=== PATIENT | male | born 1995 | race Caucasian/White ===

== ENCOUNTER 2017-05-18 15:07 | Emergency (ER) | payer SELFPAY ==
--- NOTE | 2017-05-18 16:36 | XRay Report ---
Bilateral knees, 4 views of the chest: There is a mid patellar fracture on the left with slight angulation of the fragments but no significant separation. There is mild swelling anterior to the patella and on the medial side. The knee joint space and bony structures otherwise appear unremarkable and there is good alignment of the knee joint. Images of the right knee are unremarkable. Impressions: Left patella fracture.
--- NOTE | 2017-05-18 19:49 | Emergency Department Report ---
ED Lower Extremity HPI - General Chief Complaint: Extremity Injury, Lower Stated Complaint: BILAT KNEE PAIN Time Seen by Provider: 05/18/17 19:24 Source: patient Mode of arrival: Ambulatory Limitations: No Limitations - History of Present Illness Initial Comments: pt is a 21 y/o aam nmh who presents for bilat knee pain s/p fall on pavement yesterday playing basketball, pt complains of knee pain bilat left worse than right with left knee tingling and swelling pt remains ambulatory with minimal gait disturbance, there are no open wounds no abrasions, there is no paralysis no no numbness no weakness, "my primary concern is pain and it deep in my left knee" pt has no previous hx of knee injury or surgeries. MD Complaint: knee injury Onset/Timin -: days(s) Injury: Knee: Right, Left (bilat knee pain ) Type of Injury: blunt Place: street/outdoors Severity: moderate Severity scale (0 -10): 6 Improves With: rest Worsens With: weight bearing, movement, palpation Context: fall, direct blow, running Associated Symptoms: snap/pop sensation, swelling, tingling, able to partially bear weight. denies: numbness Treatments Prior to Arrival: other (none) - Related Data Previous Rx's Medication Instructions Recorded Last Taken Type Acetaminophen/Codeine [Tylenol 1 tab PO Q6H PRN #21 tab 05/18/17 Unknown Rx /Codeine # 3 tab] Allergies Allergy/AdvReac Type Severity Reaction Status Date / Time No Known Allergies Allergy Verified 05/18/17 15:24 ED Review of Systems ROS: Stated complaint: BILAT KNEE PAIN Other details as noted in HPI Constitutional: denies: chills, fever Eyes: denies: eye pain, eye discharge, vision change ENT: denies: ear pain, throat pain Respiratory: denies: cough, shortness of breath, wheezing Cardiovascular: denies: chest pain, palpitations Endocrine: no symptoms reported Gastrointestinal: as per HPI Genitourinary: denies: urgency, dysuria Musculoskeletal: joint swelling, myalgia. denies: back pain, arthralgia Skin: denies: rash, lesions Neurological: denies: headache, weakness, numbness, paresthesias, confusion, vertigo Psychiatric: denies: anxiety, depression Hematological/Lymphatic: denies: easy bleeding, easy bruising ED Past Medical Hx - Past Medical History Previous Medical History?: No - Surgical History Past Surgical History?: No - Social History Smoking Status: Never Smoker Substance Use Type: None - Medications Home Medications: Home Medications Medication Instructions Recorded Confirmed Last Taken Type Acetaminophen/Codeine [Tylenol 1 tab PO Q6H PRN #21 tab 05/18/17 Unknown Rx /Codeine # 3 tab] ED Physical Exam - General Limitations: No Limitations General appearance: alert - Head Head exam: Present: atraumatic, normocephalic - Eye Eye exam: Present: normal appearance - ENT ENT exam: Present: mucous membranes moist - Neck Neck exam: Present: normal inspection - Respiratory Respiratory exam: Present: normal lung sounds bilaterally. Absent: respiratory distress - Cardiovascular Cardiovascular Exam: Present: regular rate, normal rhythm. Absent: systolic murmur, diastolic murmur, rubs, gallop - GI/Abdominal GI/Abdominal exam: Present: soft, normal bowel sounds - Rectal Rectal exam: Present: deferred - Extremities Exam Extremities exam: Present: full ROM, tenderness (bilat anterior knee pain), normal capillary refill, joint swelling (mild left knee swelling ). Absent: pedal edema, calf tenderness - Expanded Lower Extremity Exam Left Hip exam: Present: full ROM Upper Leg exam: Present: normal inspection, full ROM Knee exam: Present: tenderness, swelling, pain w/ pronation/supination (left medial pain with rotation full extension intact no drawer no bursitis ), full knee extension. Absent: abrasion, laceration, ecchymosis, deformity, crepidus, dislocation, erythema, effusion, posterior draw sign, pain/laxity with valgus, pain/laxity with varus Lower Leg exam: Present: normal inspection, full ROM Ankle exam: Present: normal inspection, full ROM Foot/Toe exam: Present: normal inspection, full ROM Neuro vascular tendon exam: Present: no vascular compromise. Absent: pulse deficit, abnormal cap refill, motor deficit, sensory deficit, tendon deficit, extremity cold to touch, pallor, abnormal 2-point discrimination, decreased fine /light touch, foot drop, peroneal nerve deficit, significant pain with passive ROM of distal joint Gait: Positive: observed and limited by pain Right Hip exam: Present: normal inspection, full ROM Upper Leg exam: Present: normal inspection, full ROM Knee exam: Present: normal inspection, full ROM, tenderness. Absent: swelling, abrasion, laceration, ecchymosis, deformity, crepidus, dislocation, erythema, effusion, pain w/ pronation/supination, posterior draw sign, pain/laxity with valgus, pain/laxity with varus, full knee extension Lower Leg exam: Present: normal inspection, full ROM Ankle exam: Present: normal inspection, full ROM Foot/Toe exam: Present: normal inspection, full ROM Neuro vascular tendon exam: Present: no vascular compromise. Absent: pulse deficit, abnormal cap refill, motor deficit, sensory deficit, tendon deficit, extremity cold to touch, pallor, abnormal 2-point discrimination, decreased fine /light touch, foot drop, peroneal nerve deficit, significant pain with passive ROM of distal joint Gait: Positive: observed and limited by pain - Back Exam Back exam: Present: normal inspection, full ROM. Absent: tenderness, CVA tenderness (R), CVA tenderness (L), muscle spasm, paraspinal tenderness, vertebral tenderness, rash noted - Neurological Exam Neurological exam: Present: alert, oriented X3, CN II-XII intact, reflexes normal. Absent: motor sensory deficit - Expanded Neurological Exam Expanded Patient oriented to: Present: person, place, time Speech: Present: fluid speech Cranial nerves: EOM's Intact: Normal, Gag Reflex: Normal, Tongue Deviation: Normal, Facial Sensation: Normal Cerebellar function: Finger to Nose: Normal, Heel to Waters: Normal, Romberg: Normal Upper motor neuron: Pascual Neglect: Normal, Pronator Drift: Normal, Babinski Sign : Normal, Sensory Extinction: Normal Sensory exam: Upper Extremity Light Touch: Normal, Upper Extremity Pin Prick: Normal, Upper Extremity Temperature: Normal, UE 2 Point Discrimination: Normal, Lower Extremity Light Touch: Normal, Lower Extremity Pin Prick: Normal, Lower Extremity Temperature: Normal, LE 2 Point Discrimination: Normal Motor strength exam: RUE: 5, LUE: 5, RLE: 5, LLE: 5 DTR: bicep (R): 2+, bicep (L): 2+, tricep (R): 2+, tricep (L): 2+, knee (R): 2+ , knee (L): 2+, ankle (R): 2+, ankle (L): 2+ Best Eye Response ([place]): (4) open spontaneously Best Motor Response ([place]): (6) obeys commands Best Verbal Response ([place]): (5) oriented Ezequiel Total: 15 - Psychiatric Psychiatric exam: Present: normal affect, normal mood - Skin Skin exam: Present: warm, dry, intact, normal color. Absent: rash ED Course Vital Signs 05/18/17 15:24 Temperature 97.8 F Pulse Rate 65 Blood Pressure 135/86 O2 Sat by Pulse 97 Oximetry ED Lower Extremity MDM - Radiology Data Radiology results: report reviewed, image reviewed right knee normal xray, Left knee Mid petallar fracture left closed mild angulation - Medical Decision Making pt is a 21 y/o aam nmh who presents for bilat knee pain s/p fall on pavement yesterday playing basketball, pt complains of knee pain bilat left worse than right with left knee tingling and swelling pt remains ambulatory with minimal gait disturbance, there are no open wounds no abrasions, there is no paralysis no no numbness no weakness, "my primary concern is pain and it deep in my left knee" pt has no previous hx of knee injury or surgeries. Exam: right knee normal exam x mild anterior tenderness at petella tendon rom intact unrestricted no drawer no pain with rotation full knee extension no weakness, Left knee: mild swelling mild no obvious deformity no ecchymosis no drawer pain with rotation pt remains ambulatory with slight limp, plan: mary anne, knee immobilizer, crutches follow up with ortho Dr. Pantoja in 2-3 days pt will call to setu appointment pt verbalized agreement and understanding with discharge plan. Critical care attestation.: If time is entered above; I have spent that time in minutes in the direct care of this critically ill patient, excluding procedure time. ED Disposition Clinical Impression: Left patella fracture Qualifiers: Encounter type: initial encounter Fracture type: closed Fracture morphology: transverse Fracture alignment: nondisplaced Qualified Code(s): S82.035A - Nondisplaced transverse fracture of left patella, initial encounter for closed fracture Disposition: - TO HOME OR SELFCARE Is pt being admited?: No Does the pt Need Aspirin: No Condition: Good Instructions: Patellar Fracture (ED), Knee Immobilizer (ED) Prescriptions: Acetaminophen/Codeine [Tylenol /Codeine # 3 tab] 1 tab PO Q6H PRN #21 tab PRN Reason: Pain Referrals: YEYO PANTOJA MD [Staff Physician] - 3-5 Days Forms: Work/School Release Form(ED) Time of Disposition: 20:41
[2017-05-18 21:15] VITALS: BP 141/68
== END 2017-05-18 21:15 | disposition home or self-care (01) ==
LOC: ED 15:07
DX: S82.035A Nondisplaced transverse fracture of left patella, initial encounter for closed fracture (principal); W19.XXXA Unspecified fall, initial encounter; Y93.89 Activity, other specified; Y99.9 Unspecified external cause status; Y92.410 Unspecified street and highway as the place of occurrence of the external cause

== ENCOUNTER 2020-11-09 21:33 | Emergency (ER) | payer SELFPAY ==
[2020-11-09 21:52] VITALS: BP 142/90
--- NOTE | 2020-11-09 22:33 | Emergency Department Report ---
- General Chief complaint: Skin/Abscess/Foreign Body Stated complaint: CHOKED ON QUARTER/DANAY Time Seen by Provider: 11/09/20 21:52 Source: patient Mode of arrival: Ambulatory Limitations: No Limitations - History of Present Illness Initial comments: Patient is a 25-year-old male who presents emergency room stating he felt like he was having a asthma exacerbation tonight. He states he went to use his inhaler and then feels like he swallowed something from the inhaler but he is not sure. He states since then he has had difficulty breathing and feels like it is stuck in his throat. He is still able to swallow. He denies any other past medical history except for the asthma. No allergies to medications. - Related Data Previous Rx's Medication Instructions Recorded Last Taken Type Acetaminophen/Codeine [Tylenol 1 tab PO Q6H PRN #21 tab 05/18/17 Unknown Rx /Codeine # 3 tab] Albuterol Sulfate [Proventil Hfa] 1 inhalation IH Q4HR PRN #1 11/10/20 Unknown Rx [email or web address] Prednisone [predniSONE 10 mg 10 mg PO .TAPER #1 tab.ds.pk 11/10/20 Unknown Rx (6-Day Pack, 21 Tabs)] Allergies Allergy/AdvReac Type Severity Reaction Status Date / Time No Known Allergies Allergy Verified 05/18/17 15:24 Abscess Boil HPI - HPI Chief Complaint: Skin/Abscess/Foreign Body Stated Complaint: CHOKED ON QUARTER/DANAY Time Seen by Provider: 11/09/20 21:52 Home Medications: Previous Rx's Medication Instructions Recorded Last Taken Type Acetaminophen/Codeine [Tylenol 1 tab PO Q6H PRN #21 tab 05/18/17 Unknown Rx /Codeine # 3 tab] Albuterol Sulfate [Proventil Hfa] 1 inhalation IH Q4HR PRN #1 11/10/20 Unknown Rx [email or web address] Prednisone [predniSONE 10 mg 10 mg PO .TAPER #1 tab.ds.pk 11/10/20 Unknown Rx (6-Day Pack, 21 Tabs)] Allergies/Adverse Reactions: Allergies Allergy/AdvReac Type Severity Reaction Status Date / Time No Known Allergies Allergy Verified 05/18/17 15:24 ED Review of Systems ROS: Stated complaint: CHOKED ON QUARTER/DANAY Other details as noted in HPI Comment: All other systems reviewed and negative ED Past Medical Hx - Past Medical History Hx Asthma: Yes - Surgical History Past Surgical History?: No - Social History Smoking Status: Never Smoker Substance Use Type: Alcohol - Medications Home Medications: Home Medications Medication Instructions Recorded Confirmed Last Taken Type Acetaminophen/Codeine [Tylenol 1 tab PO Q6H PRN #21 tab 05/18/17 Unknown Rx /Codeine # 3 tab] Albuterol Sulfate [Proventil Hfa] 1 inhalation IH Q4HR PRN #1 11/10/20 Unknown Rx [email or web address] Prednisone [predniSONE 10 mg 10 mg PO .TAPER #1 tab.ds.pk 11/10/20 Unknown Rx (6-Day Pack, 21 Tabs)] ED Physical Exam - General Limitations: No Limitations General appearance: alert, in no apparent distress - Head Head exam: Present: atraumatic, normocephalic - Eye Eye exam: Present: normal appearance - ENT ENT exam: Present: normal orophraynx, mucous membranes moist - Respiratory Respiratory exam: Present: wheezes (bilaterally), prolonged expiratory. Absent: respiratory distress, rales, rhonchi, stridor, chest wall tenderness, accessory muscle use - Cardiovascular Cardiovascular Exam: Present: regular rate, normal rhythm, normal heart sounds. Absent: systolic murmur, diastolic murmur, rubs, gallop - Neurological Exam Neurological exam: Present: alert, oriented X3 - Psychiatric Psychiatric exam: Present: normal affect, normal mood - Skin Skin exam: Present: warm, dry, intact ED Course Vital Signs 11/09/20 11/10/20 21:49 00:50 Temperature 98.9 F Pulse Rate 87 74 Respiratory 18 16 Rate Blood Pressure 142/90 O2 Sat by Pulse 100 100 Oximetry ED Medical Decision Making - Radiology Data Radiology results: report reviewed Ordering Physician: PEÑA RIDLEY Date of Service: 11/09/20 Procedure(s): XR neck soft tissue Accession Number(s): [id number] cc: PEÑA RIDLEY Fluoro Time In Minutes: SOFT TISSUE NECK 2 VIEWS HISTORY: Ingested foreign body. FINDINGS: The epiglottis, prevertebral soft tissues and soft tissues the neck are unremarkable. No bony or airway abnormality. Negative for radiopaque foreign body. Signer Name: Kunal Juares MD Signed: 11/09/2020 11:14 PM Workstation Name: [id number] Transcribed By: ES Dictated By: Kunal Juares MD Electronically Authenticated By: Kunal Juares MD Signed Date/Time: 11/09/202313 DD/ 12 TD/TT: Print Ordering Physician: PEÑA RIDLEY Date of Service: 11/09/20 Procedure(s): XR chest routine 2V Accession Number(s): [id number] cc: PEÑA RIDLEY Fluoro Time In Minutes: CHEST 2 VIEWS INDICATION: possible foreign body. COMPARISON: None. FINDINGS: Support devices: None. Heart: Within normal limits. Lungs/Pleura: No acute air space or interstitial disease. No significant pleural effusion. No foreign body identified. IMPRESSION: No acute findings. Signer Name: Kunal Juares MD Signed: 11/09/2020 11:13 PM Workstation Name: [id number] Transcribed By: ES Dictated By: Kunal Juares MD Electronically Authenticated By: Kunal Juares MD Signed Date/Time: 11/09/202312 DD/ 11 TD/TT: Print - Medical Decision Making Patient is a 25-year-old male who presents emergency room stating he felt like he was having a asthma exacerbation tonight. He states he went to use his inhaler and then feels like he swallowed something something from the inhaler but he is not sure. He states since then he has had difficulty breathing and feels like it is stuck in his throat. He is still able to swallow. He denies any other past medical history except for the asthma. No allergies to medications. Vitals are stable. No hypoxia, normal oropharynx, wheezing bilaterally. XR neck soft tissues: FINDINGS: The epiglottis, prevertebral soft tissues and soft tissues the neck are unremarkable. No bony or airway abnormality. Negative for radiopaque foreign body. CXR: IMPRESSION: No acute findings. Patient given neb treatment and steroids. On reexamination he feels so much better and no longer has any foreign body sensation in his throat. He states his breathing feels better as well. Symptoms are likely related to acute asthma exacerbation. Patient is able to tolerate p.o. intake and swallow without difficulty. advised pt Please take medication as prescribed. Follow-up with your primary care doctor. Return to emergency room for any new or worsening symptoms. Critical care attestation.: If time is entered above; I have spent that time in minutes in the direct care of this critically ill patient, excluding procedure time. ED Disposition Clinical Impression: Asthma exacerbation Qualifiers: Asthma severity: unspecified severity Asthma persistence: unspecified Qualified Code(s): J45.901 - Unspecified asthma with (acute) exacerbation Disposition: TO HOME OR SELFCARE Is pt being admited?: No Does the pt Need Aspirin: No Condition: Stable Instructions: Asthma, Adult Additional Instructions: Please take medication as prescribed. Follow-up with your primary care doctor. Return to emergency room for any new or worsening symptoms. Prescriptions: Prednisone [predniSONE 10 mg (6-Day Pack, 21 Tabs)] 10 mg PO .TAPER #1 tab.ds.pk Albuterol Sulfate [Proventil Hfa] 1 inhalation IH Q4HR PRN #1 hfa.aer.ad PRN Reason: shortness of breath/wheezing Referrals: PRIMARY CARE, [Primary Care Provider] - 2-3 Days Time of Disposition: 00:34 Print Language: SLOV[place]
--- NOTE | 2020-11-09 23:17 | XRay Report ---
CHEST 2 VIEWS INDICATION: possible foreign body. COMPARISON: None. FINDINGS: Support devices: None. Heart: Within normal limits. Lungs/Pleura: No acute air space or interstitial disease. No significant pleural effusion. No forei gn body identified. IMPRESSION: No acute findings. Signer Name: Kunal Juares MD Signed: 11/09/2020 11:13 PM Workstation Name: [id number]
--- NOTE | 2020-11-09 23:19 | XRay Report ---
SOFT TISSUE NECK 2 VIEWS HISTORY: Ingested foreign body. FINDINGS: The epiglottis, prevertebral soft tissues and soft tissues the neck are unremarkable. No brittani ny or airway abnormality. Negative for radiopaque foreign body. Signer Name: Kunal Juares MD Signed: 11/09/2020 11:14 PM Workstation Name: [id number]
[2020-11-09] MEDS ORDERED: dexAMETHasone 20 MG/5 ML VIAL IM ONE (23:30)
[2020-11-09] MEDS ORDERED: IPRATROPIUM 0.02% NEBU 2.5 ML IH ONE (23:30)
[2020-11-09] MEDS: ALBUTEROL 2.5 MG/3 ML NEBU IH ONE (23:56)
== END 2020-11-10 00:50 | disposition home or self-care (01) ==
LOC: ED 21:33
DX: J45.901 Unspecified asthma with (acute) exacerbation (principal); Z79.899 Other long term (current) drug therapy
CPT/HCPCS: 70360; 71046; 94640; 96372; 99283; J1100